=== PATIENT | male | born 1995 | race Caucasian/White ===

== ENCOUNTER 2022-03-18 21:45 | Emergency (ER) | payer OTHER ==
[~2022-03-18 21:45] MED LIST: FLOMAX0.4 MG PO; NORCO 5-325 TA1 EACH PO; WELLBUTRIN SR150 MG PO; ZOFRAN4 MG PO
[2022-03-19 01:53] LABS: CORONAVIRUS 2019 SARS-COV-2 NEGATIVE (NEGATIVE); INFLUENZA A NAA NEGATIVE (NEGATIVE)
== END 2022-03-19 03:15 | disposition other institution (70) ==
LOC: FER 21:45
PROVIDERS: Emergency Medicine
DX: T18.128A Food in esophagus causing other injury, initial encounter (principal); I10 Essential (primary) hypertension; Z20.822 Contact with and (suspected) exposure to COVID-19
CPT/HCPCS: 71046; 71250; J1610; U0002